=== PATIENT | female | born 1990 ===

== ENCOUNTER 2017-05-14 00:06 | Emergency (ER) | payer SELFPAY ==
[2017-05-14 00:23] VITALS: RESP 20; O2SAT 99
--- NOTE | 2017-05-14 01:46 | C.PDOC ---
History Of Present Illness 26 year old female who presents to the ER with a complaint of cough, SOB, chest congestion, and pain to upper back and arms that worsens with movement and inspiration for the past few days. Patient state she was diagnosed with pneumonia 3 months and completed her treatment. Denies recent travel, prolonged immobilization, or contraceptive pill use. Time Seen by Provider: 05/14/17 00:27 Chief Complaint (Nursing): Cough, Cold, Congestion History Per: Patient History/Exam Limitations: no limitations Onset/Duration Of Symptoms: Days Location Of Pain: Diffuse Myalgias Sick Contacts (Context): None Associated Symptoms: Cough, Myalgias. denies: Fever, Chills Recent travel outside of the [place]: No Past Medical History Reviewed: Historical Data, Nursing Documentation, Vital Signs Vital Signs: Last Vital Signs Temp 98 F 05/14/17 01:30 Pulse 84 05/14/17 01:30 Resp 20 05/14/17 01:30 BP 134/78 05/14/17 01:30 Pulse Ox 99 05/14/17 03:06 - Medical History PMH: No Chronic Diseases Surgical History: No Surg Hx Family History: States: Unknown Family Hx - Social History Hx Alcohol Use: No Hx Substance Use: No - Immunization History Hx Tetanus Toxoid Vaccination: No Hx Influenza Vaccination: No Hx Pneumococcal Vaccination: No Review Of Systems Constitutional: Negative for: Fever, Chills Cardiovascular: Positive for: Chest Pain Respiratory: Positive for: Cough, Shortness of Breath Musculoskeletal: Positive for: Back Pain Physical Exam - Physical Exam Appears: Non-toxic, No Acute Distress Skin: Normal Color, Warm, Dry Head: Atraumatic, Normacephalic Oral Mucosa: Moist Chest: Symmetrical, Tenderness (Reproducible left chest wall) Cardiovascular: Rhythm Regular, No Murmur Respiratory: Normal Breath Sounds, No Rales, No Rhonchi, No Wheezing Gastrointestinal/Abdominal: Soft, No Tenderness Extremity: Normal ROM (x4) Neurological/Psych: Oriented x3, Normal Speech, Normal Cognition ED Course And Treatment O2 Sat by Pulse Oximetry: 99 (Room air) Pulse Ox Interpretation: Normal Progress Note: CXR ordered. Motrin administered. On reevaluation, patient's pain has improved; will discharge with instructions to follow up with PMD. Disposition Counseled Patient/Family Regarding: Diagnosis, Need For Followup, Rx Given - Disposition Referrals: [facility] [Outside] Disposition: HOME/ ROUTINE Disposition Time: 01:43 Condition: STABLE Additional Instructions: Cammy las medicinas Cammy liquidos Sigue en clinica Regresa si peor Prescriptions: Cetirizine HCl [Zyrtec] 10 mg PO DAILY #20 capsule Ibuprofen [Motrin] 600 mg PO Q6H #30 tab Instructions: Upper Respiratory Infection (ED), Musculoskeletal Pain (ED) Forms: [facility] (Uzbek) Print Language: KENYAN - Clinical Impression Clinical Impression: Upper respiratory infection, Myalgia - Scribe Statement The provider has reviewed the documentation as recorded by the Scribe Robson Skinner All medical record entries made by the Scribe were at my direction and personally dictated by me. I have reviewed the chart and agree that the record accurately reflects my personal performance of the history, physical exam, medical decision making, and the department course for this patient. I have also personally directed, reviewed, and agree with the discharge instructions and disposition.
[2017-05-14 02:09] VITALS: BP 134/78; PULSE 84; TEMP 98
--- NOTE | 2017-05-14 10:08 | RAD ---
HISTORY: COMPARISON: No prior. TECHNIQUE: Chest PA and lateral FINDINGS: LINES AND TUBES: None. LUNG AND PLEURA: Lungs are well inflated and clear. There are no pleural effusions or pneumothorax. HEART AND MEDIASTINUM: The heart is not enlarged. The hilar and mediastinal contours are within normal limits. SKELETAL STRUCTURES: The bony structures are within normal limits for the patient's age. VISUALIZED UPPER ABDOMEN: Normal. OTHER FINDINGS: None. IMPRESSION: No active pulmonary disease.
== END 2017-05-14 01:55 | disposition home or self-care (01) ==
LOC: C.ER 00:06
DX: J06.9 Acute upper respiratory infection, unspecified (principal); M79.1 Myalgia